=== PATIENT | female | born 1975 ===

== ENCOUNTER 2023-08-07 23:24 | Emergency (ER) | payer OTHER ==
[~2023-08-07] VITALS: Ht 157.5 cm; Wt 63.5 kg
[2023-08-08] MEDS ORDERED: MEDROL8 MG PO (03:25)
[2023-08-08] MEDS ORDERED: BENADRYL25 MG PO ×2 (03:25)
== END 2023-08-08 03:33 ==
LOC: ER 23:25
DX: T78.49XA Other allergy, initial encounter (principal); Z88.2 Allergy status to sulfonamides
CPT/HCPCS: 96365; 99284; J1200; J2930